=== PATIENT | female | born 1940 | race Caucasian/White ===

== ENCOUNTER 2017-11-08 12:08 | Day surgery (SDC) | payer MEDICARE, BC ==
--- NOTE | 2017-11-08 07:22 | History and Physical Report ---
DATE: 11/07/2017. CHIEF COMPLAINT AND HISTORY OF CHIEF COMPLAINT: This patient presents with a history of intractable low back and leg pain. This has been chronic. She has had no injury or trauma. All conservative therapy has failed. Physical therapy , biomechanical treatments, and surgical options were not provided. A spinal cord stimulator trial on 10/12/2017 provided 75 to 85 percent pain control. Due to the failure of all therapies, she presents today for implantation of a permanent system. PAST MEDICAL HISTORY: Unchanged. PAST SURGICAL HISTORY: Unchanged. MEDICATIONS ON ADMISSION: To be provided. ALLERGIES: To be provided. REVIEW OF SYSTEMS: The patient is appropriate and in no acute distress. The remainder of the systems review is unchanged. SOCIAL HISTORY: Unchanged. FAMILY HISTORY: Unchanged. PHYSICAL EXAMINATION: General: Height and weight not available. Vital Signs: Not available. HEENT: Within normal limits. Lungs: Clear. Heart: Regular rate and rhythm. Abdomen: Nontender. Musculoskeletal: Examination of the musculoskeletal system shows diffuse tenderness in the lumbar spine. Range of motion does produce pain into the low back and into the lower extremities bilaterally. Motor function is intact. There is no obvious weakness. Her sensory chairez are all intact. Neurologic: Cranial nerves are intact. Ambulation: No assistive device utilized. IMPRESSION: LUMBAR RADICULOPATHY, ICD-10 CODE M54.16 AND M54.17. PLAN: The patient is here for implantation of a permanent spinal cord stimulator after a successful trial and failure of all other therapies. The potential risks, side effects, and complications have been discussed. These include spinal cord injury, nerve root injury, and spinal headache. Information from the breakfast hostess was provided, reviewed, and discussed. She also had direct contact and verbal conversation with a [employer] financial services representative. We will consider the procedure outpatient, although an overnight stay will be evaluated. JOB NUMBER: [id number] cc: Jian Dangelo
[~2017-11-08 12:08] MED LIST: ACETAMINOPHEN 1,000 MG/100 ML BTL IV ONE; CLINDAMYCIN 600MG/50ML PREMIX 600 MG/50 ML BAG IVPB ONE; FAMOTIDINE 20MG TABLET PO ONE; MECLIZINE 25 MG TABLET PO ONE; METOCLOPRAMIDE 10 MG TABLET PO ONE
[2017-11-08] MEDS ORDERED: LIDOCAINE 1% W/EPI 1:200,000 MPF 30ML SQ ONE (12:09)
[2017-11-08] MEDS ORDERED: MIDAZOLAM HCL 2MG/2ML VIAL IV ONE (12:09)
[2017-11-08] MEDS ORDERED: *PACU ONLY* KETAMINE HCL 10 MG/ML (20ML) VIAL IV ONE (12:09)
[2017-11-08] MEDS ORDERED: PROPOFOL 10 MG/ML VIAL IV ONE (12:09)
[2017-11-08] MEDS ORDERED: LIDOCAINE 2% MDV (20MG/ML) 20ML VIAL IV ONE (12:09)
[2017-11-08] MEDS ORDERED: CLINDAMYCIN (PEDIATRIC DOSING) 150 MG/ML VIAL IVPB ONE (12:09)
[2017-11-08] MEDS ORDERED: BUPIVACAINE 0.5% W/EPI MPF 30 ML VIAL IVP ONE (12:09)
[2017-11-08] MEDS ORDERED: FENTANYL PF 100MCG/2ML VIAL IV ONE (12:09)
[2017-11-08] MEDS ORDERED: FLUMAZENIL 1MG/10ML VIAL IV ONE (12:09)
[2017-11-08] MEDS ORDERED: HYDROMORPHONE HCL 2 MG/ML VIAL IM PRN ×2 (15:45)
[2017-11-08] MEDS ORDERED: ACETAMINOPHEN 325 MG TAB PO PRN (15:45)
[2017-11-08] MEDS ORDERED: DIPHENHYDRAMINE HCL IV 50 MG/ML VIAL IVP PRN ×2 (15:45)
[2017-11-08] MEDS ORDERED: METOCLOPRAMIDE HCL 10 MG/2 ML VIAL IVP PRN (15:45)
[2017-11-08] MEDS ORDERED: METOCLOPRAMIDE 10 MG TABLET PO PRN (15:45)
[2017-11-08] MEDS ORDERED: SENNOSIDES/DOCUSATE SODIUM UD CAPSULE PO PRN ×2 (15:45)
[2017-11-08] MEDS ORDERED: DIPHENHYDRAMINE HCL 25 MG CAPSULE PO PRN ×2 (15:45)
[2017-11-08] MEDS ORDERED: TEMAZEPAM 15 MG CAPSULE PO PRN ×2 (15:45)
[2017-11-08] MEDS ORDERED: OXYCODONE/APAP 10MG-325MG TABLET PO PRN ×2 (15:45)
[2017-11-08] MEDS ORDERED: HYDROCODONE/APAP 7.5/325MG TABLET PO PRN ×2 (15:45)
[2017-11-08] MEDS ORDERED: AL HYDROX/MAG HYDROX 30ML UD PO PRN (15:45)
[2017-11-08] MEDS: ACETAMINOPHEN 325 MG TAB PO PRN ×2 (17:15→22:39)
[2017-11-08] MEDS: CLINDAMYCIN 600MG/50ML PREMIX 600 MG/50 ML BAG IVPB SCH (21:18)
[2017-11-08] MEDS ORDERED: 0.9 % SODIUM CHLORIDE 10ML SYR IVP SCH (22:00)
[2017-11-09] MEDS: ACETAMINOPHEN 325 MG TAB PO PRN (03:30)
[2017-11-09] MEDS: CLINDAMYCIN 600MG/50ML PREMIX 600 MG/50 ML BAG IVPB SCH (05:05)
--- NOTE | 2017-11-09 11:23 | RADIOLOGY REPORT ---
EXAM: THORACOLUMBAR SPINE, ONE VIEW HISTORY: STATUS POST SCS IMPLANT. TECHNIQUE: A single AP supine view of the spine was obtained portably including the thoracic and mid to upper lumbar portions. Comparison: Intraoperative radiographs obtained on the same date. FINDINGS: Dual interspinal leads are in place appearing to enter the spinal canal at the T12-L1 and L1-L2 levels. Lead tips project at the T5-T6 level. There are degenerative changes scattered throughout the visualized spine. No acute osseous fracture nor destructive bone lesion. A dual lead transvenous cardiac stimulator is in place via the left subclavian approach with lead tips in the right atrium and right ventricle respectively. IMPRESSION: DUAL INTERSPINAL LEADS IN PLACE WITH LEAD TIPS AT THE T5-T6 LEVEL. JOB NUMBER: [id number] MTDD
--- NOTE | 2017-11-09 16:13 | Operative Note - Ferro ---
DATE OF SURGERY: 11/08/17 PREOPERATIVE DIAGNOSIS: INTRACTABLE LUMBAR RADICULOPATHY, ICD-10 CODE = M54.16 AND M54.17. OPERATION: 1. FLUOROSCOPICALLY-GUIDED EPIDURAL ACCESS LEFT T11/12, PLACEMENT OF SPINAL CORD STIMULATOR LEAD 1, A [employer] INFINION 16 WITH 16 ELECTRODES POSITIONED LEFT T7. 2. FLUOROSCOPICALLY-GUIDED EPIDURAL ACCESS LEFT T12/L1. PLACEMENT OF SPINAL CORD STIMULATOR LEAD 2, A [employer] INFINION 16 WITH 16 ELECTRODES POSITIONED RIGHT T7. 3. COMPLEX PROGRAMMING LEAD 1 OVER 20 MINUTES FOLLOWED BY COMPLEX PROGRAMMING LEAD 2 OVER 20 MINUTES. 4. INCISION, SUBCUTANEOUS DISSECTION, AND ANCHORING OF LEAD 1 AND LEAD 2 TO SUPRASPINOUS FASCIA WITH A [employer] LOCKING ANCHOR AND NONABSORBABLE SUTURE. 5. INCISION, SUBCUTANEOUS DISSECTION, AND CREATION OF A SUBCUTANEOUS POUCH AT LEFT POSTERIOR GLUTEAL MARGIN FOR PLACEMENT OF GENERATOR IDENTIFIED A [employer] PROGRAMMABLE RECHARGEABLE. 6. TUNNELING BETWEEN LEAD POUCH AND GENERATOR POUCH, PLACEMENT OF EXTERNAL PORTION OF LEAD 1 AND LEAD 2 INTO GENERATOR POUCH, EACH LEAD INTERFACED TO THE GENERATOR. 7. PLACEMENT OF GENERATOR POUCH SECURING TO POSTERIOR FASCIA WITH NONABSORBABLE SUTURE. PLACEMENT OF LEADS INTO POUCH AND CLOSURE OF INCISIONS, VICRYL FOR FASCIA AND A RUNNING SUBCUTICULAR VICRYL FOR SKIN. DERMABOND CLOSURE. 8. COMPLEX RECOVERY ROOM PROGRAMMING INTERNAL GENERATOR HOME USE TWO STIMULATORS , 20 MINUTES. SURGEON: YOLIE CONRAD D.O. ANESTHESIA: LOCAL SEDATION. ANESTHESIA PROVIDER: JOSE FLEMING CRNA. INDICATION: This patient presents with a history of intractable lumbar radiculopathy. Due to the failure of all therapies, a spinal cord stimulator trial was conducted in the office with 75 to 85% pain control. Due to the failure of all other therapies and the success of the trial, she presents today for implantation of a permanent system. PROCEDURE: Intravenous line, vital sign monitoring, IV sedation, prepped and draped in sterile technique. Under imaging, the epidural interspace at T11/12 and 12/ were identified and marked on the left. Skin infiltrated and two separate curved access Epimed needles with [id number] into the space. At 11/12, spinal cord stimulator lead 1, a [employer] Infinion 16 with 16 electrodes, positioned left at T7. With the epidural access at 12/, similar technique, spinal cord stimulator lead 2, a [employer] Infinion 16 with 16 electrodes, positioned right at T7. Complex programming of lead 1 over 20 minutes followed by complex programming of lead 2 over 20 minutes resulting in a complete pattern of stimulation across the back and into legs. Patient indicating we were in all the areas of the pain. She was given the option to implant, continue to program or remove; she opted to implant. Questions repeated with the same response. She was re-sedated. The skin above and below the needles infiltrated, incision made, and subcutaneous dissection was conducted to the supraspinous fascia. Each lead, after the needles removed, was anchored to the supraspinous fascia with a locking anchor and nonabsorbable suture. Antibiotic irrigation. Bovie for hemostasis. At the left posterior gluteal margin, a site picked by the patient for the generator, skin infiltrated , incision made, and subcutaneous dissection was conducted to form a pouch of suitable size and depth. A tunneling tool was used to carry the leads into the generator pouch and then each lead was interfaced directly with the generator. Antibiotic irrigation. Bovie for hemostasis. The generator was placed into the pouch and secured to the posterior fascia with nonabsorbable suture. The leads were placed in their own pouch and then both incisions were closed Vicryl for fascia and running subcuticular Vicryl for skin. A Dermabond closure approximating the edges of each wound. She was transported to the Recovery Room stable showing no side-effects from the procedure or the sedation. She will be kept overnight for observation because of lack of support system at home. DISCHARGE INSTRUCTIONS IN THE MORNIN. Sites remain clean and dry. No showering or bathing in any way that would disrupt dressings. 2. Standard medications resumed, including Levaquin, the antibiotic, 500 mg once a day for 14 days. 3. She will be evaluated in 5-7 days in the office to check the incisional sites. Until then, she is to keep her activities controlled and within lower limits. Once she is seen in the office, we will evaluate and increase her activity levels. All other instructions provided, numbers to contact, problems given, at that point, she will be prepared for discharge. cc: Dr. Margie Barrera JOB NUMBER: [id number] MTDD
== END 2017-11-09 09:46 | disposition home or self-care (01) ==
LOC: SUR 12:08 → MEDSURG 15:42 → SUR 11-09 09:46
PROVIDERS: ATTEND Pain Medicine Interventional Pain Medicine
DX: M54.16 Radiculopathy, lumbar region (principal); M54.17 Radiculopathy, lumbosacral region; I10 Essential (primary) hypertension; E11.9 Type 2 diabetes mellitus without complications
CPT/HCPCS: 63685; 63650 ×2; 01936; 95972; 72020; 94760 ×2; J3010; C1820; C1883